=== PATIENT | male | born 1960 | race American Indian/Alaskan Native ===

== ENCOUNTER 2017-08-26 21:04 | Emergency (ER) | payer MEDICAID, MEDICARE, OTHER ==
[2017-08-26 21:31] VITALS: BP 155/87
--- NOTE | 2017-08-26 22:44 | EDM.PDOC ---
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 Fell tonight about an hour prior to arrival He had been in his fire truck responded to a call, he had gone from an event to the call, did not have some input on his boots, when he stepped off the tender at the plantar call, he slipped on the top step falling backwards landing on his posterior right back. Winded by the fall he sat for a while before he got up. His girlfriend helped him get up to a standing position. Pain in the mid back on the right side, aggravated by movement and better with rest. Sore to touch in that area. Did not hit his head No vomiting No recent illness or fever. He doesn't normally take pain medicine for his back, his prescription last time lasted him over a year he reports. He has been able to walk since he fell but he has needed some assistance. Significant pain, he was assessed by the EMS staff there but they recommended he be checked. Right Back Pain Score (Numeric/FACES): 5 - Related Data Allergies Allergy/AdvReac Type Severity Reaction Status Date / Time indomethacin Allergy Rash Verified 02/17/16 02:50 Home Meds: Home Meds Albuterol [Proventil HFA] 2 puff INH QID PRN 02/17/16 [History] Aspirin/Calcium Carbonate/Mag [Aspirin Buffered 325 mg Tab] 325 mg PO DAILY 04/26 [History] Lisinopril 10 mg PO DAILY 02/17/16 [History] Metoprolol Succinate [Toprol Xl] 100 mg PO DAILY 02/17/16 [History] Simvastatin [Zocor] 40 mg PO DAILY 02/17/16 [History] buPROPion [Wellbutrin SR] 100 mg PO DAILY 02/17/16 [History] glipiZIDE [Glucotrol] 10 mg PO BID 02/17/16 [History] levETIRAcetam [Levetiracetam] 1,000 mg PO BID 02/17/16 [History] metFORMIN HCl [Metformin HCl] 1,000 mg PO BID 02/17/16 [History] Baclofen 10 mg PO TID 08/26/17 [History] Formoterol/Mometasone [Dulera 100-50 MCG] 2 puff IH BID 08/26/17 [History] Hydrocodone/Acetaminophen [Hydrocodon-Acetaminophen 5-325] 1 - 2 each PO Q4H PRN #10 tablet 08/26/17 [Rx] Pantoprazole Sodium [Protonix] 40 mg PO DAILY 08/26/17 [History] Saxagliptin [Onglyza] 2.5 mg PO DAILY 08/26/17 [History] Past Medical History HEENT History: Reports: Impaired Vision Cardiovascular History: Reports: CAD, High Cholesterol, Hypertension, Pacemaker Other Cardiovascular History: 100% paced rhythm Respiratory History: Reports: Asthma, Sleep Apnea Gastrointestinal History: Reports: GERD Musculoskeletal History: Reports: Back Pain, Chronic Neurological History: Reports: Seizure, TIA Psychiatric History: Reports: Depression Endocrine/Metabolic History: Reports: Diabetes, Type II - Infectious Disease History Infectious Disease History: Reports: Chicken Pox - Past Surgical History Cardiovascular Surgical History: Reports: Valve Replacement GI Surgical History: Reports: Cholecystectomy Social & Family History - Family History Family Medical History: Unobtainable - Tobacco Use Smoking Status *Q: Current Every Day Smoker Years of Tobacco use: 45 Packs/Tins Daily: 0.5 Used Tobacco, but Quit: No Second Hand Smoke Exposure: Yes - Caffeine Use Caffeine Use: Reports: Coffee, Soda - Alcohol Use Days Per Week of Alcohol Use: 1 Number of Drinks Per Day: 1 Total Drinks Per Week: 1 - Recreational Drug Use Recreational Drug Use: No ED ROS GENERAL - Review of Systems Review Of Systems: See Below Constitutional: Reports: No Symptoms HEENT: Reports: No Symptoms Respiratory: Reports: Other (posterior right-sided chest pain) Cardiovascular: Reports: Chest Pain. Denies: Palpitations GI/Abdominal: Reports: No Symptoms : Reports: No Symptoms Musculoskeletal: Reports: Back Pain Skin: Reports: No Symptoms Neurological: Reports: No Symptoms Psychiatric: Reports: No Symptoms Hematologic/Lymphatic: Reports: No Symptoms ED EXAM,LOWER BACK PAIN/INJURY - Physical Exam Exam: See Below Exam Limited By: No Limitations General Appearance: Alert, Moderate Distress, Other (pleasant, interactive, vital signs normal except for mild elevation blood pressure) Eye Exam: Bilateral Eye: EOMI, Normal Inspection Ears: Normal External Exam Nose: Normal Inspection Throat/Mouth: Normal Inspection Head: Atraumatic, Normocephalic Neck: Normal Inspection, Non-Tender Respiratory/Chest: Normal Breath Sounds, Other (right posterior chest tenderness , point tenderness) Cardiovascular: Normal Peripheral Pulses, Regular Rate, Rhythm GI/Abdominal: Normal Bowel Sounds, Non-Tender Back Exam: CVA Tenderness (R), CVA Tenderness (L), Decreased Range of Motion. 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 Exacerbation of chronic low back pain, but he is also tender in the right lower posterior ribs , so possible rib fracture present. No vertebral tenderness so acute fracture of the spine is unlikely and he was able to ambulate and walk. Declined analgesics here but will be prescribed some pain medication in case he has worsening pain. They from his ribs in the next few days. See discharge instructions 08/27/17 00:23 Departure - Departure Time of Disposition: 22:40 Disposition: Home, Self-Care 01 Condition: Good Clinical Impression: Rib injury Contusion of lower back Qualifiers: Encounter type: initial encounter Qualified Code(s): S30.0XXA - Contusion of lower back and pelvis, initial encounter - Discharge Information Prescriptions: Hydrocodone/Acetaminophen [Hydrocodon-Acetaminophen 5-325] 1 - 2 each PO Q4H PRN #10 tablet PRN Reason: Moderate to severe pain Instructions: Back Exercises, [id number], Rib Fracture, [id number] Referrals: Luann Membreno I, CLINICAL DOCUMENTATION MANAGER [Primary Care Provider] - Forms: ED Department Discharge Additional Instructions: Fall today at work No evidence of fracture of the spine but you do have tenderness of the posterior left ribs and it is quite possible that you have a broken rib. The fall will make her back pain worse, take pain medication if needed to help his sleep. Stay as active as possible Get rechecked if you develop fever, shortness of breath, difficulties breathing or bad cough. Otherwise follow-up with your doctor if not able to return to work in the next 7 -10 days.
== END 2017-08-26 22:52 | disposition home or self-care (01) ==
LOC: JP.ED 21:04
DX: S30.0XXA Contusion of lower back and pelvis, initial encounter (principal); S29.9XXA Unspecified injury of thorax, initial encounter; Z79.899 Other long term (current) drug therapy; Z79.82 Long term (current) use of aspirin; Z88.8 Allergy status to other drugs, medicaments and biological substances; W19.XXXA Unspecified fall, initial encounter; F17.210 Nicotine dependence, cigarettes, uncomplicated
CPT/HCPCS: 99283

== ENCOUNTER 2018-10-06 18:06 | Emergency (ER) | payer MEDICARE, OTHER ==
[2018-10-06 18:25] VITALS: BP 148/86
--- NOTE | 2018-10-06 18:57 | EDM.PDOC ---
ED HPI GENERAL MEDICAL PROBLEM - General Chief Complaint: Lower Extremity Injury/Pain Stated Complaint: RI HIP SLIPPED YESTERDAY Time Seen by Provider: 10/06/18 18:57 Source of Information: Reports: Patient History Limitations: Reports: No Limitations - History of Present Illness INITIAL COMMENTS - FREE TEXT/NARRATIVE: pt arrived with pain in the rt hip after shoveling yesterday. He is having alot of problems walking. He has no pain going down the back of the leg. he Did not fall or land on the hip. He may have twisted it when he was doing the shovelingg. He does have a history of some chronic back pain. Onset: Other ( Pain was quite severe last nite and it has been persistent. ) Duration: Hour(s): Location: Reports: Lower Extremity, Right Associated Symptoms: Reports: No Other Symptoms - Related Data Allergies Allergy/AdvReac Type Severity Reaction Status Date / Time indomethacin Allergy Rash Verified 02/17/16 02:50 Home Meds: Home Meds Albuterol [Proventil HFA] 2 puff INH QID PRN 02/17/16 [History] Aspirin/Calcium Carbonate/Mag [Aspirin Buffered 325 mg Tab] 325 mg PO DAILY 04/26 [History] Lisinopril 5 mg PO DAILY 02/17/16 [History] Metoprolol Succinate [Toprol Xl] 100 mg PO DAILY 02/17/16 [History] Simvastatin [Zocor] 40 mg PO DAILY 02/17/16 [History] buPROPion [Wellbutrin SR] 100 mg PO DAILY 02/17/16 [History] glipiZIDE [Glucotrol] 10 mg PO BID 02/17/16 [History] levETIRAcetam [Levetiracetam] 1,000 mg PO BID 02/17/16 [History] metFORMIN HCl [Metformin HCl] 1,000 mg PO BID 02/17/16 [History] Baclofen 10 mg PO TID 08/26/17 [History] Formoterol/Mometasone [Dulera 100-50 MCG] 2 puff IH BID 08/26/17 [History] Pantoprazole Sodium [Protonix] 40 mg PO DAILY 08/26/17 [History] Saxagliptin [Onglyza] 2.5 mg PO DAILY 08/26/17 [History] Past Medical History HEENT History: Reports: Impaired Vision Cardiovascular History: Reports: CAD, High Cholesterol, Hypertension, Pacemaker Other Cardiovascular History: 100% paced rhythm Respiratory History: Reports: Asthma, Sleep Apnea Gastrointestinal History: Reports: GERD Musculoskeletal History: Reports: Back Pain, Chronic Neurological History: Reports: Seizure, TIA Psychiatric History: Reports: Depression Endocrine/Metabolic History: Reports: Diabetes, Type II - Infectious Disease History Infectious Disease History: Reports: Chicken Pox - Past Surgical History Cardiovascular Surgical History: Reports: Valve Replacement GI Surgical History: Reports: Cholecystectomy Social & Family History - Family History Family Medical History: Unobtainable - Tobacco Use Smoking Status *Q: Unknown Ever Smoked - Caffeine Use Caffeine Use: Reports: None - Recreational Drug Use Recreational Drug Use: No Review of Systems - Review of Systems Review Of Systems: See Below Constitutional: Reports: No Symptoms Eyes: Reports: No Symptoms Ears: Reports: No Symptoms Nose: Reports: No Symptoms Mouth/Throat: Reports: No Symptoms Respiratory: Reports: No Symptoms Cardiovascular: Reports: No Symptoms GI/Abdominal: Reports: No Symptoms Genitourinary: Reports: No Symptoms Musculoskeletal: Reports: Other (pain in the rt hip area. ) ED EXAM, GENERAL - Physical Exam Exam: See Below Free Text/Narrative:: pt arrived with acute pain in the lateral hip after doing alot of shoveling. Exam Limited By: No Limitations General Appearance: Alert, Anxious, Moderate Distress, Other (Pt is having alot of pain when he trys to walk. ) Ears: Normal TMs Ear Exam: Right Ear: Swelling Nose: Normal Inspection Throat/Mouth: Normal Inspection Head: Atraumatic Respiratory/Chest: No Respiratory Distress Cardiovascular: Regular Rate, Rhythm Extremities: Other (pt has pain in the rt hip. He is very uncomfortable when the leg is rotated. ) Course - Vital Signs Last Recorded V/S: Last Vital Signs Temp 36.2 C 10/06/18 18:35 Pulse 82 10/06/18 18:35 Resp 24 H 10/06/18 18:35 BP 148/86 H 10/06/18 18:35 Pulse Ox 95 10/06/18 18:35 - Orders/Labs/Meds Orders: Active Orders 24 hr Category Date Time Status Naproxen [Naprosyn] Med 10/06/18 20:56 Once 500 mg PO Q12HR ONE Medication Orders Naproxen (Naprosyn) 500 mg PO Q12HR ONE Stop: 10/06/18 20:57 Labs: Laboratory Tests 10/06/18 10/06/18 Range/Units 18:58 18:58 WBC 8.5 (4.5-11.0) K/uL RBC 4.79 (4.30-5.90) M/uL Hgb 13.2 (12.0-15.0) g/dL Hct 41.1 (40.0-54.0) % MCV 86 (80-98) fL MCH 28 (27-31) pg MCHC 32 (32-36) % Plt Count 200 (150-400) K/uL Neut % (Auto) 68 H (36-66) % Lymph % (Auto) 22 L (24-44) % Duchesne % (Auto) 7 H (2-6) % Eos % (Auto) 2 (2-4) % Baso % (Auto) 0 (0-1) % Sodium 143 (140-148) mmol/L Potassium 4.0 (3.6-5.2) mmol/L Chloride 106 (100-108) mmol/L Carbon Dioxide 26 (21-32) mmol/L Anion Gap 11.1 (5.0-14.0) mmol/L BUN 10 (7-18) mg/dL Creatinine 1.0 (0.8-1.3) mg/dL Est Cr Clr Drug Dosing 89.89 mL/min Estimated GFR (MDRD) > 60 (>60) Glucose 139 H (74-106) mg/dL Calcium 8.6 (8.5-10.1) mg/dL Total Bilirubin 0.3 (0.2-1.0) mg/dL AST 28 (15-37) U/L ALT 41 (12-78) U/L Alkaline Phosphatase 75 (46-116) U/L Total Protein 7.5 (6.4-8.2) g/dL Albumin 3.5 (3.4-5.0) g/dL Globulin 4.0 H (2.3-3.5) g/dL Albumin/Globulin Ratio 0.9 L (1.2-2.2) Meds: Medications Generic Name Dose Route Start Last Admin Trade Name Freq PRN Reason Stop Dose Admin Naproxen 500 mg 10/06/18 20:56 Naprosyn PO 10/06/18 20:57 Q12HR ONE Discontinued Medications Generic Name Dose Route Start Last Admin Trade Name Freq PRN Reason Stop Dose Admin Ketorolac Tromethamine 60 mg 10/06/18 18:58 10/06/18 19:08 Toradol IM 10/06/18 18:59 60 mg ONETIME ONE Administration Oxycodone/Acetaminophen 1 tab 10/06/18 18:58 10/06/18 19:08 Percocet 325-5 Mg PO 10/06/18 18:59 1 tab ONETIME ONE Administration - Re-Assessments/Exams Free Text/Narrative Re-Assessment/Exam: 10/06/18 21:05 lumbar spine series reveals mild degenerative disc disease, His hip has good joint space and no acute findings Departure - Departure Time of Disposition: 20:58 Disposition: Home, Self-Care 01 Condition: Fair Clinical Impression: Bursitis of hip, right, Tendonitis involving right hip abductors - Discharge Information Referrals: Luann Membreno I, WEB MOBILE DESIGNER [Primary Care Provider] - Forms: ED Department Discharge Care Plan Goals: rest, no work for the next 2 days, ortho referal naprosyn 500mg tid with food, percocet 5/325 q6h prn for severe pain, moist warm packs to the site. - My Orders Last 24 Hours: My Active Orders 10/06/18 20:56 Naproxen [Naprosyn] 500 mg PO Q12HR ONE - Assessment/Plan Last 24 Hours: My Active Orders 10/06/18 20:56 Naproxen [Naprosyn] 500 mg PO Q12HR ONE
[2018-10-06] MEDS ORDERED: Acetaminophen/oxyCODONE 325-5 MG Tab PO ONE (18:58)
[2018-10-06] MEDS ORDERED: Ketorolac 60 MG/2 ML SDV IM ONE (18:58)
--- NOTE | 2018-10-06 19:57 | CRLCR ---
INDICATION: Right hip pain TECHNIQUE: X-ray right hip, two views COMPARISON: None available FINDINGS: The femoral head is well formed and well seated within the acetabulum. Negative for acute fracture or dislocation. The joint space is preserved. The overlying soft tissue is unremarkable. Negative for radiopaque foreign body. Vascular calcification is seen within the soft tissues. IMPRESSION: Unremarkable right hip radiograph. Negative for acute fracture or dislocation. Dictated by Elizabeth Macdonald MD @ 10/06/2018 7:55:08 PM Dictated by: Elizabeth Macdonald MD @ 10/06/2018 19:55:29 (Electronically Signed)
--- NOTE | 2018-10-06 20:01 | CRLCR ---
INDICATION: Low back pain radiating to right hip/leg TECHNIQUE: Lumbar spine 4 view. COMPARISON: None available FINDINGS: Bones: There are 5 non rib-bearing lumbar type vertebral bodies. Alignment is normal. No fractures or significant bone lesions. Joints: There is mild diffuse disc space narrowing throughout the lumbar spine. Anterior osteophytes are present throughout. Soft tissues: Surgical clips are seen within the right upper quadrant of the abdomen. There is atherosclerotic calcification of the abdominal aorta. IMPRESSION: Mild multilevel degenerative changes of the lumbar spine. If neurologic symptoms persist recommend MRI of the lumbar spine. Dictated by Elizabeth Macdonald MD @ 10/06/2018 7:58:03 PM Dictated by: Elizabeth Macdonald MD @ 10/06/2018 19:59:04 (Electronically Signed)
[2018-10-06] MEDS ORDERED: Naproxen 250 MG Tab PO ONE (20:56)
== END 2018-10-06 21:19 | disposition home or self-care (01) ==
LOC: JP.ED 18:06
DX: M70.71 Other bursitis of hip, right hip (principal); M76.9 Unspecified enthesopathy, lower limb, excluding foot; I10 Essential (primary) hypertension; E78.00 Pure hypercholesterolemia, unspecified; E11.9 Type 2 diabetes mellitus without complications; K21.9 Gastro-esophageal reflux disease without esophagitis; Z79.84 Long term (current) use of oral hypoglycemic drugs; Z79.899 Other long term (current) drug therapy; Z79.82 Long term (current) use of aspirin
CPT/HCPCS: 36415; 72110; 73502; 80053; 85025; 96372; 99283; A9270; J1885